=== PATIENT | female | born 1960 | race Caucasian/White ===

== ENCOUNTER 2025-08-15 15:07 | Outpatient (CLI) | payer OTHER, SELFPAY ==
--- NOTE | ~2025-08-15 | US_ITS ---
EXAMINATION: Ultrasound pelvis, complete: DATE: 08/15/2025. INDICATION: 65 year-old with postmenopausal vaginal bleeding. TECHNIQUE: Transabdominal and transvaginal examination of the pelvis was performed including Doppler were obtained. COMPARISON: No prior imaging studies of the pelvis are available for comparison. FINDINGS: Bulky uterus is noted measuring the length of 8.4 cm, and a width of 4.2 cm. Significant, irregular heterogeneous endometrial thickening measuring up to 20 mm in width. Well-circumscribed margins of the echogenic lesion is noted on some of the images. Right ovary measures 5 cc in volume. Left ovary is not visualized. No fluid collections in the pelvis. IMPRESSION: 1. Bulky uterus is noted. Significant irregular echogenic thickening of the endometrium measuring up to 20 mm in thickness. This is suspicious for endometrial neoplasm versus endometrial polyp. Further evaluation with endometrial biopsy is recommended. 2. Normal postmenopausal size right ovary. Left ovary is not visualized. No fluid collections in the pelvis. Reviewed, dictated and finalized at location [facility] IMPRESSION: 1. Bulky uterus is noted. Significant irregular echogenic thickening of the end ometrium measuring up to 20 mm in thickness. This is suspicious for endometrial neoplasm versus endometrial polyp. Further evaluation with endometrial biopsy is recommended. 2. Normal postmenopausal size right ovary. Left ovary is not visualized. No flu id collections in the pelvis.
== END 2025-08-15 15:08 | disposition home or self-care (01) ==
PROVIDERS: PCP Family Medicine; Visit Provider Student in an Organized Health Care Education/Training Program
DX: N95.0 Postmenopausal bleeding (principal); N85.2 Hypertrophy of uterus
CPT/HCPCS: 76830; 76856